=== PATIENT | female | born 1970 | race Caucasian/White ===

== ENCOUNTER 2016-09-25 14:13 | Emergency (ER) | payer OTHER ==
[~2016-09-25] VITALS: Ht 149.9 cm; Wt 109.0 kg
[~2016-09-25 14:13] MED LIST: ALBU2.5V3 NEB; ALBU8.5H3 INH; PRED20TA PO; QVAR40 INH
[2016-09-25 14:26] VITALS: Ht 149.9 cm; Wt 109.0 kg
[2016-09-25] MEDS ORDERED: LEVETIRACETAM IV 1,000 MG in SOD CHLORIDE 0.9% 100 ML IVPB STA (18:09)
[2016-09-25] MEDS ORDERED: LEVO50TA74 PO (18:30)
[2016-09-25 18:37] LABS: ADD SCAN DIFF NO
[2016-09-25 18:49] LABS: ALBUMIN 4.2 g/dl (3.3-4.9)
[2016-09-25 18:51] LABS: BILIRUBIN,INDIRECT 0.6 mg/dl (0-1.1); BILIRUBIN,TOTAL 0.6 mg/dl (0.2-1.3); CREATININE 0.64 mg/dl (0.44-1.00)
[2016-09-25 18:52] LABS: ALBUMIN/GLOBULIN RATIO 1.07; CALCIUM 9.3 mg/dl (8.4-10.2); TOTAL PROTEIN 8.1 g/dl (6.1-8.1)
[2016-09-25 18:58] LABS: BASOPHIL # 0.1 10^3/ul (0.0-0.1); BASOPHILS % 0.4 % (0.0-2.0); EOSINOPHILS # 0.2 10^3/ul (0.0-0.5); EOSINOPHILS % 1.4 % (0.0-7.0); HEMATOCRIT 38.4 % (37.0-47.0); HEMOGLOBIN 12.1 g/dl (12.0-16.0); LYMPHOCYTES # 3.9 10^3/ul (0.8-2.9); LYMPHOCYTES % 23.1 % (15.0-51.0); MEAN CORPUSCULAR HEMOGLOBIN 27.5 pg (29.0-33.0); MEAN CORPUSCULAR HGB CONC 31.5 g/dl (32.0-37.0); MEAN CORPUSCULAR VOLUME 87.3 fl (82.0-101.0); MEAN PLATELET VOLUME 9.9 fl (7.4-10.4); MONOCYTES % 5.9 % (0.0-11.0); NEUTROPHIL # 11.5 10^3/ul (1.6-7.5); NEUTROPHILS % 68.7 % (39.0-77.0); PLATELET COUNT 424 10^3/UL (140-415); RED CELL DISTRIBUTION WIDTH 12.8 % (11.5-14.5); WHITE BLOOD COUNT 16.7 10^3/ul (4.8-10.8)
[2016-09-25 19:30] LABS: FREE T3 3.65 pg/ml (2.77-5.27)
[2016-09-25 19:38] LABS: THYROID STIMULATING HORMONE 5.51 MIU/L (0.465-4.680)
--- NOTE | 2016-09-25 20:07 | ERA ---
ER Documentation Chief Complaint Date/Time DATE: 09/25/16 TIME: 20:03 Chief Complaint Pt with chills 3 epidose in the last week. HPI This is a 46-year-old female who complains for 2 weeks now she has had off and on chills that lasted a few minutes and resolved. She is not having any cough headache chest pain shortness of breath dysuria nausea vomiting or diarrhea. She is also complaining of 3 episodes over the past 2 weeks where she will have uncontrollable shaking of her arms and legs resemble a seizure. The patient states that she is awake throughout the entire episode and the shaking all last between 2-4 minutes. She says after the shaking stops very lethargic and sleepy for about 5 minutes before she feels better. Patient has a history of hypothyroidism and takes levothyroxine. She is feeling tired, heavy menstrual cycles and hair changes as well. ROS All systems reviewed and are negative except as per history of present illness. Medications Home Meds Reported Medications Levothyroxine Sodium* (Levothyroxine Sodium*) 50 Mcg Tablet, 50 MCG PO BEFORE BREAKFAST, #30 TAB 09/25/16 Discontinued Reported Medications Albuterol Sulfate* (Albuterol Sulfate* Neb) 0.083%-3 Ml Neb, 1.25 MG NEB Q4H, EA 12/09/14 Discontinued Scripts Beclomethasone Dip (Qvar 40) 1 Puff Inha, 1 PUFF INH BID, #1 INHALER Prov:TED HENDRICKS PA-C 09/13/15 Albuterol Sulfate* (Proair HFA*) 8.5 Gm Hfa.aer.ad, 2 PUFF INH Q4, #1 INHALER Prov:TED HENDRICKS PA-C 09/13/15 Prednisone* (Prednisone*) 20 Mg Tab, 40 MG PO DAILY for 4 Days, TAB Prov:TED HENDRICKS PA-C 09/13/15 Allergies Allergies: Coded Allergies: No Known Drug Allergies (Verified Allergy, Unknown, 09/25/16) PMhx/Soc History of Surgery: Yes (REMOVAL OF CYST IN OVARY) Anesthesia Reaction: No Hx Neurological Disorder: No Hx Respiratory Disorders: No (ASTHMA) Hx Cardiac Disorders: No Hx Psychiatric Problems: No Hx Miscellaneous Medical Probl: Yes (SLEEP APNEA, thyroid) Hx Alcohol Use: No Hx Substance Use: No Hx Tobacco Use: No FmHx Family History: No coronary disease Physical Exam Vitals Vital Signs Date Time Temp Pulse Resp B/P Pulse Ox O2 Delivery O2 Flow Rate FiO2 09/25/16 18:18 73 17 144/109 97 Room Air 09/25/16 14:26 99.2 94 18 175/83 96 Physical Exam Const: Well-developed, well-nourished Head: Atraumatic, normocephalic Eyes: Normal Conjunctiva, PERRLA, EOMI, normal sclera, no nystagmus ENT: Normal External Ears, Nose and Mouth, moist mucus membranes. Neck: Full range of motion. No meningismus, no lymphadenopathy. Resp: Clear to auscultation bilaterally, no wheezing, rhonchi, rales Cardio: Regular rate and rhythm, no murmurs, S1 S2 present Abd: Soft, non tender x 4, non distended. Normal bowel sounds, no guarding or rebound, no pulsitile abdominal masses or bruits Skin: No petechiae or rashes, no ecchymosis , no maculopapular rash Back: No midline or flank tenderness Ext: No cyanosis, or edema, FROM x 4, normal inspection, neurovascularly intact x 4 Neur: Awake and alert, STR 5/5 x 4, sensation intact x 4, no focal findings, cerebellum intact Psych: Normal Mood and Affect Result Diagram: 09/25/16181409/25/161814 Results 24 hrs Laboratory Tests Test 09/25/16 18:15 09/25/16 19:50 Alanine Aminotransferase (ALT/SGPT) 20IU/L Albumin 4.2g/dl Albumin/Globulin Ratio 1.07 Alkaline Phosphatase 116IU/L Anion Gap 17 Aspartate Amino Transf (AST/SGOT) 15IU/L Basophils # 0.110^3/ul Basophils % 0.4% Blood Urea Nitrogen 11mg/dl Calcium Level 9.3mg/dl Carbon Dioxide Level 28mmol/L Chloride Level 101mmol/L Creatinine 0.64mg/dl Direct Bilirubin 0.00mg/dl Eosinophils # 0.210^3/ul Eosinophils % 1.4% Free Thyroxine 0.93ng/dl Free Triiodothyronine (T3) pg/mL 3.65pg/ml Globulin 3.90g/dl Glucose Level 102mg/dl Hematocrit 38.4% Hemoglobin 12.1g/dl Indirect Bilirubin 0.6mg/dl Lymphocytes # 3.910^3/ul Lymphocytes % 23.1% Mean Corpuscular Hemoglobin 27.5pg Mean Corpuscular Hemoglobin Concent 31.5g/dl Mean Corpuscular Volume 87.3fl Mean Platelet Volume 9.9fl Monocytes # 1.010^3/ul Monocytes % 5.9% Neutrophils # 11.510^3/ul Neutrophils % 68.7% Nucleated Red Blood Cells # 0.010^3/ul Nucleated Red Blood Cells % 0.0/100WBC Platelet Count 00451^3/UL Potassium Level 4.0mmol/L Red Blood Count 4.4010^6/ul Red Cell Distribution Width 12.8% Sodium Level 142mmol/L Thyroid Stimulating Hormone (TSH) 5.510MIU/L Total Bilirubin 0.6mg/dl Total Protein 8.1g/dl White Blood Count 16.710^3/ul Urine Bacteria RARE Urine Bilirubin NEGATIVE Urine Clarity CLEAR Urine Color LT. YELLOW Urine Glucose NEGATIVE% Urine Hemoglobin 2+ Urine Ketones NEGATIVE Urine Leukocyte Esterase NEGATIVE Urine Microscopic RBC 2-5/HPF Urine Microscopic WBC NONE SEEN/HPF Urine Nitrite NEGATIVE Urine Specific [place] 1.010 Urine Squamous Epithelial Cells FEW Urine Total Protein NEGATIVE Urine Urobilinogen 0.2 E.U./dL Urine pH 7.0 Current Medications Medications (Trade) Dose Ordered Sig/Piedad Route PRN Reason Start Time Stop Time Status Last Admin Dose Admin Levetiracetam/ Sodium Chloride (Keppra Iv/NS) 110 ml @ 400 mls/hr ONCE STAT IVPB 09/25/16 18:09 09/25/16 18:25 DC 09/25/16 18:40 Procedures/MDM Patient is likely having a partial seizures episodes. She is having feelings of chills and hypothyroid symptoms she does have a sluggish thyroid on her blood work. PROCEDURE: CT Brain without contrast. CLINICAL INDICATION: Seizure. TECHNIQUE: A CT of the brain was performed utilizing axial sections from the skull base through the vertex without contrast. Multiplanar re-formations were generated. Images were reviewed on a high-resolution PACS workstation. CTDIvol: 43.12 mGy. DLP: 823.84 mGy-cm. One or more of the following dose reduction techniques were used: - Automated exposure control. - Adjustment of the mA and/or kV according to patient size. - Use of iterative reconstruction technique. COMPARISON: None available FINDINGS: There is no cerebral volume loss. No hydrocephalus is seen. There is no mass effect. No acute intracranial hemorrhage is identified. There is no extra-axial collection. Mcclain-white matter differentiation is preserved. There is a retention cyst in the left maxillary sinus. The visualized mastoid air cells are clear. The ossesous structures are unremarkable. The extracranial soft tissues are unremarkable. IMPRESSION: 1. No acute intracranial pathology. RPTAT: HTAR .Basilio Gomez MD, MD Date Time Electronically viewed and signed by .Basilio Gomez MD, MD on 09/25/2016 20:20 .R/ CC: HOLLAND GARCIA DO Patient was loaded with IV Keppra. Patient is taking 50 g of levothyroxine. I will have her double her dose and follow with her doctor for lab check in about 4-6 weeks. Patient is a white count of 16.7 no evidence of urinary tract infection. The patient states that she had one of these shaking episodes just before coming in. Her white blood count is likely elevated due to this type of seizure/ partial seizure she is having. The patient says she feels fine now and I will gave her strict discharge instructions and seizure precautions. She will follow-up with her doctor this week and she does have an appointment tomorrow with the GI doctor. We will discharge her home with Keppra Departure Diagnosis: Primary Impression: Partial seizure Additional Impression: Hypothyroidism Qualified Code: E03.9 - Hypothyroidism, unspecified type Condition: Stable HOLLAND GARCIA DO Sep 25, 2016 20:07
[2016-09-25 20:14] LABS: ADD UMIC YES; URINE BILIRUBIN (Dip) NEGATIVE (NEGATIVE); URINE BLOOD (Dip) 2+ (NEGATIVE); URINE COLOR LT. YELLOW (YELLOW); URINE GLUCOSE (Dip) NEGATIVE (NEGATIVE); URINE KETONES (Dip) NEGATIVE (NEGATIVE); URINE LEUKOCYTE ESTERASE (Dip) NEGATIVE (NEGATIVE); URINE NITRITE (Dip) NEGATIVE (NEGATIVE); URINE TOTAL PROTEIN (Dip) NEGATIVE (NEGATIVE); URINE UROBILINOGEN (Dip) 0.2 E.U./dL (0.1-1.0)
--- NOTE | 2016-09-25 20:20 | RADRPT ---
PROCEDURE: CT Brain without contrast. CLINICAL INDICATION: Seizure. TECHNIQUE: A CT of the brain was performed utilizing axial sections from the skull base through th e vertex without contrast. Multiplanar re-formations were generated. Images were reviewed on a high- resolution PACS workstation. CTDIvol: 43.12 mGy. DLP: 823.84 mGy-cm. One or more of the following dose reduction techniques were used: - Automated exposure control. - Adjustment of the mA and/or kV according to patient size. - Use of iterative reconstruction technique. COMPARISON: None available FINDINGS: There is no cerebral volume loss. No hydrocephalus is seen. There is no mass effect. No acute intrac ranial hemorrhage is identified. There is no extra-axial collection. Mcclain-white matter differentiati on is preserved. There is a retention cyst in the left maxillary sinus. The visualized mastoid air cells are clear. The ossesous structures are unremarkable. The extracranial soft tissues are unremarkable. IMPRESSION: 1. No acute intracranial pathology. RPTAT: HTAR .Basilio Gomez MD, MD Date Time Electronically viewed and signed by .Basilio Gomez MD, on 09/25/2016 20:20 .R/
[2016-09-25 20:29] LABS: BACTERIA,URINE RARE; SQUAMOUS EPITHELIAL CELL,UR FEW
[2016-09-25] MEDS ORDERED: LEVE100018 PO (21:02)
--- NOTE | 2016-09-25 21:07 | RADRPT ---
PROCEDURE: XR Chest. CLINICAL INDICATION: Seizure. Shortness of breath. TECHNIQUE: Single frontal view. COMPARISON: 09/13/2015. FINDINGS: The lungs are clear. The heart is mildly enlarged. There is no pleural effusion. There is no pneumothorax. IMPRESSION: 1. Mild cardiomegaly. 2. Clear lungs. RPTAT: QQ .Elfego Lovelace MD, MD Date Time Electronically viewed and signed by .Elfego Lovelace MD, MD on 09/25/2016 21:07 .R/
[2016-09-25 22:09] VITALS: BP 112/72; PULSE 62; RESP 18
== END 2016-09-25 22:29 | disposition home or self-care (01) ==
LOC: E/R 14:13
DX: G40.219 Localization-related (focal) (partial) symptomatic epilepsy and epileptic syndromes with complex partial seizures, intractable, without status epilepticus (principal); E03.9 Hypothyroidism, unspecified; J45.909 Unspecified asthma, uncomplicated
CPT/HCPCS: 36415; 70450; 71010; 80053; 81001; 81003; 84439; 84443; 84481; 85025; 96365; 96366; J1953; Z7502; Z7610

== ENCOUNTER 2016-10-27 21:52 | Emergency (ER) | payer OTHER ==
[~2016-10-27] VITALS: Ht 157.5 cm; Wt 110.0 kg
[~2016-10-27 21:52] MED LIST changes: -ALBU2.5V3 NEB; -ALBU8.5H3 INH; +LEVE100018 PO; +LEVO50TA74 PO; -PRED20TA PO; -QVAR40 INH
[2016-10-27 21:54] VITALS: Ht 157.5 cm; Wt 110.0 kg
[2016-10-27] MEDS ORDERED: LEVE100018 PO (22:46)
--- NOTE | 2016-10-27 22:49 | ERD ---
ER Documentation Chief Complaint Date/Time DATE: 10/27/16 TIME: 22:47 Chief Complaint medication refill-keppra HPI This a 46-year-old female who presents to the emergency department today for a refill on her Keppra she has a history of seizures. Patient states she is almost out of her medication. Denies any seizures recently. Denies any fevers or chills per ROS All systems reviewed and are negative except as per history of present illness. Medications Home Meds Active Scripts Levetiracetam* (Keppra*) 1,000 Mg Tablet, 1000 MG PO BID, #60 TAB Prov:DEMETRIUS PALACIOS PA-C 10/27/16 Levetiracetam* (Keppra*) 1,000 Mg Tablet, 1000 MG PO BID, #60 TAB Prov:HOLLAND GARCIA DO 09/25/16 Reported Medications Levothyroxine Sodium* (Levothyroxine Sodium*) 50 Mcg Tablet, 50 MCG PO BEFORE BREAKFAST, #30 TAB 09/25/16 Allergies Allergies: Coded Allergies: No Known Drug Allergies (Verified Allergy, Unknown, 09/25/16) PMhx/Soc History of Surgery: Yes (REMOVAL OF CYST IN OVARY) Anesthesia Reaction: No Hx Neurological Disorder: No Hx Respiratory Disorders: No (ASTHMA) Hx Cardiac Disorders: No Hx Psychiatric Problems: No Hx Miscellaneous Medical Probl: Yes (SLEEP APNEA, thyroid, SEIZURES) Hx Alcohol Use: No Hx Substance Use: No Hx Tobacco Use: No Smoking Status: Never smoker Physical Exam Vitals Vital Signs Date Time Temp Pulse Resp B/P Pulse Ox O2 Delivery O2 Flow Rate FiO2 10/27/16 21:54 98.8 81 20 137/75 98 Physical Exam Const: Pleasant, no acute distress Head: Atraumatic Eyes: Normal Conjunctiva ENT: Normal External Ears, Nose and Mouth. Neck: Full range of motion..~ No meningismus. Resp: Clear to auscultation bilaterally Cardio: Regular rate and rhythm, no murmurs Abd: Soft, non tender, non distended. Normal bowel sounds Skin: No petechiae or rashes Back: No midline or flank tenderness Neur: Awake and alert Psych: Normal Mood and Affect Procedures/MDM This is a 46-year-old female who presents to the emergency department today for a refill on her Keppra medication for her history of seizure disorder. Patient is almost out of her medications states that her primary care physician is on vacation at this time. She states that she does have a neurologist appointment scheduled for November. Patient is afebrile and otherwise well-appearing. Her vital signs are stable. Patient was given a refill on her Keppra. I do not feel the patient requires further workup or imaging at this time. She has not had any recent seizures. Low suspicion for acute hemorrhage, mass, abscess. At this time the patient is stable for discharge and outpatient management. Patient should follow up with their PCP in the next 1-2 days. They may return to the emergency department sooner for any persistent or worsening of symptoms. Patient understood and agreed with the plan. Departure Diagnosis: Primary Impression: Encounter for medication refill Condition: Fair Patient Instructions: Taking Medicine Safely Referrals: EZEQUIEL LARA (PCP) Additional Instructions: Llame al doctor NICK y helene zoila ALLEN PARA DENTRO DE 1-2 AG.Dgale a la secretaria que nosotros le instruimos hacer esta allen.Avise o llame si heredia condicin se empeora antes de la allen. Regresa aqui si peor o no mejor. Take your medication as prescribed and keep your appointment with your neurologist and may DEMETRIUS PALACIOS PA-C Oct 27, 2016 22:49
== END 2016-10-27 22:51 | disposition home or self-care (01) ==
LOC: FTE 21:52
DX: Z76.0 Encounter for issue of repeat prescription (principal); J45.909 Unspecified asthma, uncomplicated
CPT/HCPCS: 99281

== ENCOUNTER 2017-07-03 04:17 | Emergency (ER) | payer OTHER ==
[~2017-07-03] VITALS: Ht 144.8 cm; Wt 101.2 kg
[2017-07-03 04:36] VITALS: Ht 144.8 cm; Wt 101.2 kg
[2017-07-03] MEDS ORDERED: ASPIRIN 325 MG TAB PO STA (05:14)
[2017-07-03 05:39] VITALS: TEMP 98.8
[2017-07-03 05:52] LABS: BASOPHILS % 0.3 % (0.0-2.0); EOSINOPHILS # 0.3 10^3/ul (0.0-0.5); HEMOGLOBIN 11.7 g/dl (12.0-16.0); LYMPHOCYTES # 2.3 10^3/ul (0.8-2.9); LYMPHOCYTES % 15.3 % (15.0-51.0); MEAN CORPUSCULAR HEMOGLOBIN 28.9 pg (29.0-33.0); MEAN CORPUSCULAR HGB CONC 33.4 g/dl (32.0-37.0); MEAN CORPUSCULAR VOLUME 86.4 fl (82.0-101.0); MEAN PLATELET VOLUME 9.9 fl (7.4-10.4); MONOCYTE # 0.9 10^3/ul (0.3-0.9); MONOCYTES % 5.8 % (0.0-11.0); NEUTROPHIL # 11.6 10^3/ul (1.6-7.5); NEUTROPHILS % 76.1 % (39.0-77.0); PLATELET COUNT 372 10^3/UL (140-415); RED BLOOD COUNT 4.05 10^6/ul (4.20-5.40); RED CELL DISTRIBUTION WIDTH 12.8 % (11.5-14.5); WHITE BLOOD COUNT 15.2 10^3/ul (4.8-10.8)
--- NOTE | 2017-07-03 06:00 | RADRPT ---
PROCEDURE: CHEST - 1 VIEW CLINICAL INDICATION: 47-year-old female with chest pain. TECHNIQUE: A single frontal AP portable view of the chest was performed. The images were reviewed on a PACS workstation. COMPARISON: Chest x-ray September 25, 2016. FINDINGS: The cardiomediastinal silhouette is within normal limits without significant interval change.. Ther e is no evidence for an infiltrate. There is no evidence for congestive heart failure. There is no evidence for pneumothorax. The osseous structures are intact. IMPRESSION: No evidence for active cardiopulmonary disease. .Jey Franz MD, Date Time Electronically viewed and signed by .Jey Franz MD, on 07/03/2017 06:00 .Dariela/
[2017-07-03 06:18] LABS: ANION GAP 19 (8-16); BLOOD UREA NITROGEN 13 mg/dl (7-20); CALCIUM 9.4 mg/dl (8.4-10.2); CARBON DIOXIDE 24 mmol/L (21-31); CHLORIDE 105 mmol/L (97-110); CREATININE 0.73 mg/dl (0.44-1.00); GLUCOSE 120 mg/dl (70-220); POTASSIUM 3.9 mmol/L (3.5-5.1); SODIUM 144 mmol/L (135-144)
[2017-07-03] MEDS ORDERED: KETOROLAC 15 MG INJ IV STA (06:29)
--- NOTE | 2017-07-03 06:29 | ERD ---
ER Documentation Chief Complaint Chief Complaint chest pressure,hx asthma & apnea,uses CPAP at home HPI 47-year-old female with a history of seizures, thyroid disease, sleep apnea and asthma ambulatory to the ED for evaluation of chest pain. She was awakened from sleep this morning at approximately 130 with sharp, nonradiating, left- sided chest pain. Denies shortness of breath, nausea, vomiting or diaphoresis. Pain is exacerbated by movement, no relieving factors. Denies leg pain or swelling. No URI symptoms, cough or hemoptysis. No recent surgery or trauma. Denies abdominal pain or back pain. No headache, visual changes, focal weakness or numbness. No fevers or chills. ROS All systems reviewed and are negative except as per history of present illness. Medications Home Meds Active Scripts Levetiracetam* (Keppra*) 1,000 Mg Tablet, 1000 MG PO BID, #60 TAB Prov:DEMETRIUS PALACIOS PA-C 10/27/16 Levetiracetam* (Keppra*) 1,000 Mg Tablet, 1000 MG PO BID, #60 TAB Prov:HOLLAND GARCIA DO 09/25/16 Reported Medications Levothyroxine Sodium* (Levothyroxine Sodium*) 50 Mcg Tablet, 50 MCG PO BEFORE BREAKFAST, #30 TAB 09/25/16 Allergies Allergies: Coded Allergies: No Known Drug Allergies (Verified Allergy, Unknown, 09/25/16) PMhx/Soc Reviewed in chart. As per HPI. History of Surgery: Yes (REMOVAL OF CYST IN OVARY) Anesthesia Reaction: No Hx Neurological Disorder: No Hx Respiratory Disorders: No (ASTHMA) Hx Cardiac Disorders: No Hx Psychiatric Problems: No Hx Miscellaneous Medical Probl: Yes (SLEEP APNEA, thyroid, SEIZURES) Hx Alcohol Use: No Hx Substance Use: No Hx Tobacco Use: No FmHx Father: Hypertension. Paternal grandfather: Gastric cancer. Paternal grandmother ovarian cancer. Physical Exam Vitals Vital Signs Date Time Temp Pulse Resp B/P Pulse Ox O2 Delivery O2 Flow Rate FiO2 07/03/17 05:56 73 17 119/45 100 Room Air 07/03/17 05:39 Nasal Cannula 2 07/03/17 05:39 98.8 73 18 124/68 98 07/03/17 04:36 98.8 73 18 145/67 98 Physical Exam Const: Alert, no acute distress. Head: Atraumatic Eyes: Normal Conjunctiva ENT: Normal External Ears, Nose and Mouth. Neck: Full range of motion. Tender. No JVD. Resp: Sounds are equal and clear to auscultation bilaterally. No rales, rhonchi or wheezes. Cardio: Regular rate and rhythm, no murmurs, gallops or rubs. Abd: Soft, obese, non tender, non distended. Normal bowel sounds Skin: No petechiae or rashes Back: No midline or flank tenderness Ext: No cyanosis, or edema. No calf swelling or tenderness. Pulses 4+ in all extremities. Neur: Awake and alert. Cranial nerves II through XII are grossly intact. Normal speech. No focal deficit observed. Psych: Normal Mood and Affect. Patient does not appear anxious or depressed. Result Diagram: 07/03/17 0534 07/03/17 0514 Results 24 hrs Laboratory Tests Test 07/03/17 05:14 07/03/17 05:34 Sodium Level 144mmol/L Potassium Level 3.9mmol/L Chloride Level 105mmol/L Carbon Dioxide Level 24mmol/L Anion Gap 19 Blood Urea Nitrogen 13mg/dl Creatinine 0.73mg/dl Glucose Level 120mg/dl Calcium Level 9.4mg/dl Troponin I < 0.012ng/ml White Blood Count 15.210^3/ul Red Blood Count 4.0510^6/ul Hemoglobin 11.7g/dl Hematocrit 35.0% Mean Corpuscular Volume 86.4fl Mean Corpuscular Hemoglobin 28.9pg Mean Corpuscular Hemoglobin Concent 33.4g/dl Red Cell Distribution Width 12.8% Platelet Count 04831^3/UL Mean Platelet Volume 9.9fl Neutrophils % 76.1% Lymphocytes % 15.3% Monocytes % 5.8% Eosinophils % 2.0% Basophils % 0.3% Nucleated Red Blood Cells % 0.0/100WBC Neutrophils # 11.610^3/ul Lymphocytes # 2.310^3/ul Monocytes # 0.910^3/ul Eosinophils # 0.310^3/ul Basophils # 0.010^3/ul Nucleated Red Blood Cells # 0.010^3/ul Current Medications Medications (Trade) Dose Ordered Sig/Piedad Route PRN Reason Start Time Stop Time Status Last Admin Dose Admin Aspirin (Aspirin) 325 mg ONCE STAT PO 07/03/17 05:14 07/03/17 05:15 DC 07/03/17 06:10 Ketorolac Tromethamine (Toradol) 15 mg ONCE STAT IV 07/03/17 06:29 07/03/17 06:30 DC LABS: Leukocytosis otherwise unremarkable. Troponin negative. EKG: TIME: 04: 40. Sinus rhythm. Ventricular rate 79. Normal FL& QRS. Sinus arrhythmia but no ectopy. No acute ST-T wave changes. EP Interpretation: Normal EKG. IMAGING: Chest x-ray, AP portable. Cardiac silhouette is normal. No effusions or infiltrates. Costophrenic angles are clear. No abnormalities of the bony thorax. No mediastinal widening. EP interpretation: Normal chest x- ray. Procedures/MDM DOCUMENTS REVIEWED: ED nurse, prior ED, prior records REEXAMINATION/REEVALUATION: Time:07:15. Doing well. Vital signs stable. Chest pain resolved. MEDICAL DECISION MAKIN-year-old female with a history of seizures, thyroid disease, sleep apnea and asthma ambulatory to the ED for evaluation of chest pain. No cardiac dysrhythmia, acute ischemic EKG changes or elevated troponin. No radiographic evidence of CHF, pneumonia or pneumothorax. Low risk for PE and PERC negative hence, no further testing is indicated. Aortic dissection is unlikely. Patient with sleep apnea at risk for pulmonary hypertension. Reproducible left-sided chest wall tenderness consistent with costochondritis relieved with ketorolac. HEART Score 2 and patient had low risk for MACE. Although a cardiac etiology is highly unlikely she will require urgent follow-up for further risk stratification within the next 48-72 hours. Understands that the etiology of her symptoms are presumptive and not definitively established. Urgent outpatient follow-up or return to the ED if symptoms recur is mandatory. Patient's blood pressure was initially elevated (> 120/80) but resolved to normal without treatment and appears stable without evidence of hypertension emergency or urgency. The patient was counseled about the risks of hypertension and urged to pursue outpatient monitoring and therapy within 72 hours. Stable for discharge with precautionary instructions and outpatient follow-up as counseled. Counseled patient regarding diagnostic workup, diagnosis and need for followup. Understands to return to ED if symptoms recur, worsen or any other concerns. Mandatory outpatient follow-up within the next 48 hours. Departure Diagnosis: Primary Impression: Chest pain with low risk for cardiac etiology Condition: Stable (Improved) JAREN ANGLIN MD Jul 03, 2017 06:29
[2017-07-03 06:35] LABS: TROPONIN-I < 0.012 ng/ml (0.00-0.12)
[2017-07-03 07:19] VITALS: BP 137/58; PULSE 70; RESP 18
== END 2017-07-03 07:20 | disposition home or self-care (01) ==
LOC: E/R 04:17
DX: R07.89 Other chest pain (principal); J45.909 Unspecified asthma, uncomplicated
CPT/HCPCS: 36415; 71010; 80048; 84484; 85025; 93005; 96374; J1885; Z7502; Z7610

== ENCOUNTER 2017-09-24 10:07 | Emergency (ER) | END 2017-09-24 16:27 | disposition home or self-care (01) ==